=== PATIENT | female | born 1975 | race African-American/Black ===

== ENCOUNTER 2017-02-21 06:41 | Inpatient (IN) | payer BC, OTHER ==
[2017-02-20 15:13] VITALS: BMI 52.7
[~2017-02-21 06:41] MED LIST: BUPIVACAINE HCL/PF 0.25% (2.5MG/ML) 10 ML VIAL IJ ONE
[2017-02-21] MEDS ORDERED: LIDOCAINE HCL/PF 2% SDV 5ML VIAL ONE ×2 (07:49→07:55)
[2017-02-21] MEDS ORDERED: SUCCINYLCHOLINE CHLORIDE 200 MG/10 ML VIAL ONE (07:52)
[2017-02-21] MEDS ORDERED: PROPOFOL 20 ML ONE ×2 (07:52)
[2017-02-21] MEDS ORDERED: MIDAZOLAM HCL 2 MG/2 ML SINGLE DOSE VIAL ONE (07:53)
[2017-02-21] MEDS ORDERED: ROCURONIUM BROMIDE 50 MG/5 ML VIAL ONE ×2 (07:53→09:26)
[2017-02-21] MEDS ORDERED: ceFAZolin SODIUM 1 GM VIAL ONE (07:55)
[2017-02-21] MEDS ORDERED: DEXAMETHASONE SOD PHOSPHATE 4 MG/1 ML VIAL ONE (07:55)
[2017-02-21] MEDS ORDERED: KETOROLAC TROMETHAMINE 30 MG/1 ML VIAL ONE (07:55)
[2017-02-21] MEDS ORDERED: GENTAMICIN SO4 80 MG/2 ML VIAL ONE (08:00)
[2017-02-21] MEDS ORDERED: BUPIVACAINE HCL/PF 0.25% (2.5MG/ML) 10 ML VIAL ONE (08:01)
[2017-02-21] MEDS ORDERED: ceFAZolin SODIUM 1 GM VIAL IVPB ONE (08:42)
[2017-02-21] MEDS ORDERED: POLYMYXIN B SULFATE IVPB ONE (08:45)
[2017-02-21] MEDS ORDERED: WATER IVPB ONE (08:45)
[2017-02-21] MEDS ORDERED: DEXTROSE 5% IVPB ONE (08:45)
--- NOTE | 2017-02-21 08:45 | HP ---
Admitting History and Physical - Admission Chief Complaint: Vomiting,; GERD; Makfunctionig Gastric Band; Morbid Obesity History of Present Illness: Pt with lap-band for 8 years, now with GERD, vomiting secondary to band. pt also suffers from morbid obesity. Pt for removal of gastric band plus sleeve gastrectomy. History Source: Patient Limitations to Obtaining History: No Limitations - Past Medical History UTILITY LOCATE TECHNICIAN: No: Alzheimer's, CVA, Dementia, Migraine, Multiple Sclerosis, Peripheral Neuropathy, Parkinson's, Seizure, Syncope, TIA, Vertigo, Other Cardiovascular: No: AFIB, Aneurysm, Aortic Insufficiency, Aortic Stenosis, CAD, CHF, Deep Vein Thrombosis, HTN, Hyperlipdemia, CT, Mitral Insufficiency, Mitral Stenosis, Murmur, Pulmonary Hypertension, Other Pulmonary: No: Asthma, Bronchitis, Cancer, COPD, O2 Dependent, Pneumonia, Previously Intubated, Pulmonary Embolus, Pulmonary Fibrosis, Sleep Apnea, Other Gastrointestinal: Yes: GERD, Other (vomiting) Hepatobiliary: No: Cirrhosis, Cholelithiasis, Cholecystitis, Choledocholithiasis , Hepatitis A, Hepatitis B, Hepatitis C, Other Renal/: No: Renal Failure, Renal Inusuff, BPH, Cancer, Hematuria, Hemodialysis , Neurogenic Bladder, Renal Calculi, UTI, Other Reproductive: No: Ectopic , Endometriosis, Fibroids, PID, Polycystic Ovary Syndrome, Postmenopausal, Other ...LMP: 02/17/17 Heme/Onc: No: Anemia, B12 Deficiency, Bleeding Disorder, Cancer, Current Chemotherapy, Current Radiation Therapy, Hemochromatosis, Hypercoaguable State, Myeloproliferative Synd, Sickle Cell Disease, Sickle Cell Trait, Thrombocytopenia, Other Infectious Disease: No: AIDS, C-Diff, Herpes Zoster, HIV, MRSA, STD's, Tuberculosis, VREF, Other Psych: No: Addictions, Anxiety, Bipolar, Depression, Panic, Psychosis, Schizophrenia, Other Musculoskeletal: No: Bursitis, Chronic low back pain, Hemiparesis, Hemiplegia, Osteoarthritis, Paraplegia, Other Rheumatology: No: Fibromyalgia, Gout, Lupus, Rheumatoid Arthritis, Sarcoidosis, Vasculitis, Other ENT: No: Allergic Rhinitis, Sinusitis, Other Endocrine: No: [place]'s Disease, Aysha's Disease, Diabetes Insipidus, Diabetes Mellitus, Hyperparathyroidism, Hyperthyroidism, Hypothyroidism, Osteopenia, SIADH, Other Dermatology: No: Basal Cell, Cellulitis, Eczema, Melanoma, Psoriasis, Squamous Cell, Other - Smoking History Smoking history: Never smoked - Alcohol/Substance Use Hx Alcohol Use: No History of Substance Use: denies: None, Cocaine, Heroin, Marijuana, Prescription , Tranquilizers - Social History Usual Living Arrangement: No: Alone, With Spouse, With Parent, With Significant Other, With Child, Assisted Living, Fdc, Other Home Medications - Allergies Allergies/Adverse Reactions: Allergies Allergy/AdvReac Type Severity Reaction Status Date / Time No Known Allergies Allergy Verified 02/21/17 07:31 - Home Medications Home Medications: Ambulatory Orders NK [No Known Home Medication] 02/20/17 Physical Examination Vital Signs: Vital Signs Temperature 98.2 F 02/21/17 07:30 Pulse Rate 83 02/21/17 07:30 Respiratory Rate 20 02/21/17 07:30 Blood Pressure 137/67 02/21/17 07:30 O2 Sat by Pulse Oximetry (%) 100 02/21/17 07:26
[2017-02-21] MEDS ORDERED: DESFLURANE GAS 240 ML BOTTLE IH ONE (09:06)
[2017-02-21] MEDS ORDERED: METOPROLOL TARTRATE 5 MG/5 ML VIAL ONE (10:27)
[2017-02-21] MEDS ORDERED: NEOSTIGMINE METHYLSULFATE 0.5 MG/ML - 10 ML MDV ONE (10:43)
[2017-02-21] MEDS ORDERED: BUPIVACAINE HCL/PF 0.25% (2.5MG/ML) 10 ML VIAL IJ ONE (11:00)
[2017-02-21] MEDS ORDERED: TRIMETHOBENZAMIDE HCL 200MG/2ML INJ IM PRN (11:13)
[2017-02-21] MEDS ORDERED: ONDANSETRON 4 MG/2 ML VIAL IVPB PRN (11:13)
--- NOTE | 2017-02-21 11:23 | OP ---
Operative Note - Note: Operative Date: 02/21/17 Pre-Operative Diagnosis: Morbid Obesity; Vomiting; Epigatric Pain; GERD; Malfunctioning Gastric Band Operation: Laparoscopic Vertical Sleeve Gastrectomy; removal of Gastric Band plus subcutaneous port Findings: Greater curve sleeve gastrectomy performed with #[address] Band removes around the stomach and fibrous capsule removed around the stomach. Post-Operative Diagnosis: Other (abdominal adhesions; fibrous capsule around the stomach) Surgeon: Mario Garcia Plastic Molding Operator: Dakota Duque Anesthesia: General Specimens Removed: Greater curve of stomach; Gastric Band plus subcutaneous port Estimated Blood Loss (mls): 50
[2017-02-21] MEDS ORDERED: HYDROmorphone HCL CARPU-JECT 1 MG/1 ML DISP.SYRIN IVPUSH PRN (11:24)
[2017-02-21 11:47] LABS: MCHC 29.4 g/dl (32.0-36.0); MEAN PLT VOLUME 8.2 fl (7.5-11.1); PLATELET COUNT 460 K/MM3 (134-434); RDW 20.5 % (11.6-15.6); WHITE BLOOD COUNT 12.7 K/mm3 (4.0-10.0)
[2017-02-21 11:49] LABS: MCH 17.6 pg (25.7-33.7)
[2017-02-21] MEDS ORDERED: HYDROmorphone HCL CARPU-JECT 2 MG/1 ML DISP.SYRIN ONE (12:15)
[2017-02-21 12:19] LABS: ALBUMIN 2.9 g/dl (3.4-5.0); ALK PHOS 86 U/L (45-117); ANION GAP 8 (8-16); BILIRUBIN,TOTAL 0.1 mg/dL (0.2-1.0); CO2 27 mmol/L (21-32); CREATININE 0.8 mg/dL (0.55-1.02); GLUCOSE,RANDOM 164 mg/dL (74-106); SGOT/AST 44 U/L (15-37); SGPT/ALT 31 U/L (12-78)
[2017-02-21 12:52] LABS: ANISOCYTOSIS 2+; FRAGMENTED CELL FEW; HYPOCHROMIA 3+; MICROCYTOSIS 2+; TEAR DROP CELLS FEW
[2017-02-21] MEDS: HYDROmorphone HCL CARPU-JECT 1 MG/1 ML DISP.SYRIN IVPB PRN ×2 (14:59→22:00)
[2017-02-21] MEDS: FAMOTIDINE 20 MG/50 ML IVPB 50 ML IVPB SCH (22:00)
[2017-02-21] MEDS: ENOXAPARIN NA (PORCINE) 40 MG/0.4 ML DISP.SYRIN SQ SCH (22:04)
[2017-02-22] MEDS: HYDROmorphone HCL CARPU-JECT 1 MG/1 ML DISP.SYRIN IVPB PRN ×2 (05:51→10:09)
[2017-02-22 07:57] LABS: ALBUMIN 2.7 g/dl (3.4-5.0); ANION GAP 9 (8-16); CALCIUM 8.4 mg/dL (8.5-10.1); CO2 26 mmol/L (21-32); CREATININE 0.6 mg/dL (0.55-1.02); GLUCOSE,RANDOM 86 mg/dL (74-106); SGOT/AST 25 U/L (15-37); SGPT/ALT 26 U/L (12-78)
[2017-02-22 08:00] LABS: ALK PHOS 73 U/L (45-117); BILIRUBIN,TOTAL 0.2 mg/dL (0.2-1.0); TOT PROT 6.6 g/dl (6.4-8.2)
[2017-02-22] MEDS ORDERED: PT OWN MED DRAWER 7, Y5N ONE (09:05)
[2017-02-22] MEDS: FAMOTIDINE 20 MG/50 ML IVPB 50 ML IVPB SCH ×2 (09:32→21:48)
[2017-02-22] MEDS: ENOXAPARIN NA (PORCINE) 40 MG/0.4 ML DISP.SYRIN SQ SCH (09:33)
[2017-02-22] MEDS ORDERED: SODIUM CHLORIDE 1,000 ML IV SCH (10:30)
--- NOTE | 2017-02-22 11:00 | PATH ---
Surgical Pathology Report Patient Name: ROSANNA HOUSE Med. Rec. #: [id number] /Age/Gender: 1975 (Age: 41) / F Account: [id number] Location: 4 W TELEMETRY U Taken: 02/21/2017 Received: 02/21/2017 Reported: 02/22/2017 Physicians: Mario Garcia M.D. Specimen(s) Received A: GREATER CURVATURE OF STOMACH B: FOREIGN BODY-GASTRIC BAND AND PORT Clinical History Morbid obesity Final Diagnosis A. STOMACH, GREATER CURVATURE, SLEEVE GASTRECTOMY: PORTION OF STOMACH WITH SUBMUCOSAL VASCULAR ECTASIA, WITH EXTRAVASATION OF RED BLOOD CELLS. NO SIGNIFICANT INFLAMMATION IDENTIFIED. IMMUNOSTAIN FOR H. PYLORI IS NEGATIVE. B. CELLULAR EQUIPMENT REPAIRER, STOMACH, REMOVAL: CELLULAR EQUIPMENT REPAIRER CONSISTENT WITH GASTRIC BAND AND PORT (GROSS ONLY). Electronically Signed Arjun Gooden M.D. Gross Description A. Received in formalin, labeled "greater curvature of stomach," is a 66 gram, 16.5 x 4.0 x 2.3 cm. portion of stomach with a stapled margin of resection. The serosa is dawn-swartz with minimal attached fat. The mucosa is dawn-pink with normal folds. No mucosal masses are identified. Resistor Inspector sections are submitted in one cassette. B. Received fresh labeled "old gastric band and subcutaneous port," are 2 portions of a disrupted gastric band measuring 4.0 x 2.3 x 1.0 cm and 9.5 x 2.3 x 1.0 cm. The larger portion displays an attached 40 cm in length portion of tubing extending from one aspect. Also received within the same container is a 3.2 cm in diameter x 1.6 cm in depth dawn, circular device, consistent with a port. The port displays a 10 cm in length portion of tubing extending from one aspect. The port displays minimal attached soft tissue. No sections are submitted, gross only. /02/21/201702/21/2017
[2017-02-22] MEDS ORDERED: OXYCODONE/APAP 5/325MG COMBO TABLET PO PRN (11:31)
--- NOTE | 2017-02-22 12:03 | PN ---
Progress Note (short form) - Note Progress Note: POD#1 Pt doing well No N/V UGI- no leak, no obstruction H/H-6.8/23.8 Pt with known anemia pre-op HgB- 8.1 Pulse-60-70 Bp-142/74 Pt ambulating, no orthostasis P- Check H/H this afternoon Begin PO clear liquids Cont venodyne boots
--- NOTE | 2017-02-22 12:36 | OP ---
DATE OF OPERATION: 02/21/2017 PROCEDURES PERFORMED: 1. Laparoscopic vertical sleeve gastrectomy. 2. Removal of gastric band plus subcutaneous port component. 3. Laparoscopic lysis of adhesions. 4. Excision of fibrous capsule around the stomach. 5. Diagnostic laparoscopy. PREOPERATIVE DIAGNOSIS: 1. Morbid obesity. 2. Epigastric pain. 3. Gastroesophageal reflux disease. 4. Vomiting. 5. Malfunctioning mechanical device secondary to gastric band. POSTOPERATIVE DIAGNOSIS: 1. Morbid obesity. 2. Gastroesophageal reflux disease. 3. Epigastric pain. 4. Vomiting. 5. Malfunctioning mechanical device secondary to gastric band. 6. Abdominal adhesions. 7. Fibrous capsule around the stomach. OPERATING SURGEON: Mario Garcia MD LEAD CARGOMAN: Dakota Duque MD ANESTHESIA: General ESTIMATED BLOOD LOSS: 50 mL OPERATIVE PROCEDURE: The patient was brought into the operating room and placed on the OR table in a supine position. All precautions were taken initially, including padding for the back and the feet, and Venodyne boots were placed on both lower extremities. At that point, the abdomen was prepped and draped in the usual manner. A Veress needle was placed in the left quadrant and a pneumoperitoneum established. A No. 5 bladeless trocar was placed in the left upper quadrant. Through that trocar, a laparoscopic camera was placed. Under direct vision, a No. 15 bladeless trocar was placed in the midline in the supraumbilical position and a No. 5 bladeless trocar below the left costal margin. There were adhesions noted between the omentum and the left anterior abdominal wall. These were lysed with a No. 5 trocar, with the LigaSure device and also with laparoscopic scissors. Once they were completely lysed, a No. 5 bladeless trocar was then placed in the right upper quadrant. The left upper quadrant trocar was now changed from a No. 5 to a No. 12. At this point, a Harriet liver retractor was placed in the epigastrium to retract the left lobe of the liver. The patient was then placed in 20-degree reverse Trendelenburg position. The band tip was followed to the band around the proximal portion of the stomach. The band was then pulled to the patient's left side by the assistant prosecuting attorney surgeon as the operating surgeon dissected scar tissue off of the band on the lesser curvature. Once this was in full view, the band was then pulled to the patient's right side as the assistant prosecuting attorney surgeon retracted the stomach inferiorly. At this point, the capsule around the band, which was mostly adhesion, was scored with electrocautery, and this was done until the band was in full view. The band was then cut in two pieces and both pieces were removed from around the stomach and sent off the field to Pathology as a specimen. Attention was now directed to the fibrous capsule on the stomach wall. With the operating surgeon and assistant prosecuting attorney surgeon lifting it off the stomach, the fibrous capsule was split in the middle with the laparoscopic scissors from inferior all the way to superior up by the esophagogastric junction. The fibrous capsule was then peeled off toward both the patient's lesser curvature and greater curvature side. At this point, the fibrous capsule was continued to be taken down with the LigaSure device laterally on the greater curvature toward the left diaphragm until the entire stomach capsule was unwrapped, and now stomach wall was in full view. At this point, the sleeve gastrectomy portion of the surgery was going to begin. Six centimeters were measured proximally from the pylorus and here, the operating surgeon lifted the stomach toward the anterior abdominal wall as the assistant prosecuting attorney surgeon retracted the gastrocolic ligament inferiorly. The LigaSure device was used to dissect the gastrocolic ligament and then the short gastric vessels off the greater curve of the stomach. This continued in a superior direction until the final short gastric vessel between the proximal fundus and the superior pole of the spleen was divided. At this juncture, the bougie, which was a No. 40, was placed by Anesthesia, was advanced into the stomach and held along the lesser curvature. A series of marcell was performed, the first two being black load, 6 cm in length, along the bougie. This was followed by a series of purple load marcell along the bougie until the final staple was fired in the left upper quadrant and the greater curve was now completely detached from the lesser curve. It should be noted that prior to firing these marcell, both the anterior and posterior cunningham were checked so that they were equal in distance and in the area of the esophagogastric junction, approximately 0.5 cm remained on the anterior and posterior surfaces. At this juncture, was placed around the staple line and Anesthesia injected air into the bougie, which showed the entire stomach distended. No obstruction or leaks were noted. At this point, the resected greater curve was removed from the No. 15 trocar site in the midline. Under direct vision, the No. 15 and No. 12 trocars were closed with the Endo Close device to prevent internal hernia and to prevent bleeding. Under direct vision, all trocars were removed and pneumoperitoneum released. The right upper quadrant trocar site was now extended medially in the area of the subcutaneous port. Dissection continued down through the subcutaneous fat until the port was reached. The capsule off the port was dissected and the port was then removed from the right anterior rectus muscle and sent off the field as specimen. At this point, all trocar sites received 0.25% Marcaine, were closed with 4-0 Biosyn in a subcuticular fashion except for where the port site , were first closed with 3-0 Vicryl in interrupted fashion on the subcutaneous tissue, followed by 4-0 Biosyn in subcuticular fashion. Dressings were applied, the patient was awakened from anesthesia and transferred out of the operating room to the recovery room in stable condition. Ant [id number]
[2017-02-22 13:41] LABS: MCHC 28.9 g/dl (32.0-36.0); MEAN CELL VOLUME 59.8 fl (80-96); MEAN PLT VOLUME 8.1 fl (7.5-11.1); PLATELET COUNT 416 K/MM3 (134-434); RDW 20.7 % (11.6-15.6); WHITE BLOOD COUNT 11.9 K/mm3 (4.0-10.0)
[2017-02-22 13:51] LABS: MCH 17.3 pg (25.7-33.7)
[2017-02-22] MEDS: ACETAMINOPHEN 325 MG TABLET (FP) PO PRN (21:45)
[2017-02-22] MEDS: oxyCODONE HCL 5 MG TABLET PO PRN (21:47)
[2017-02-23] MEDS: ACETAMINOPHEN 325 MG TABLET (FP) PO PRN (06:20)
[2017-02-23] MEDS: oxyCODONE HCL 5 MG TABLET PO PRN (06:21)
[2017-02-23 08:13] VITALS: BP 135/67; TEMP 98.6
[2017-02-23] MEDS: FAMOTIDINE 20 MG/50 ML IVPB 50 ML IVPB SCH (10:04)
[2017-02-23 13:20] LABS: MEAN CELL VOLUME 61.5 fl (80-96); MEAN PLT VOLUME 7.3 fl (7.5-11.1); PLATELET COUNT 388 K/MM3 (134-434); WHITE BLOOD COUNT 10.2 K/mm3 (4.0-10.0)
[2017-02-23 13:22] LABS: MCH 18.5 pg (25.7-33.7)
[2017-02-23 13:37] VITALS: PULSE 58
== END 2017-02-23 15:20 | disposition home or self-care (01) | DRG 908 ==
LOC: JSAMEDAYSX 06:41 → J4W 14:38
PROVIDERS: ADMIT Surgery; ATTEND Surgery
PROC: 0DP64CZ Removal of Extraluminal Device from Stomach, Percutaneous Endoscopic Approach (ICD-10-PCS; 2017-02-21)
PROC: 0DN64ZZ Release Stomach, Percutaneous Endoscopic Approach (ICD-10-PCS; 2017-02-21)
PROC: 0DB64ZZ Excision of Stomach, Percutaneous Endoscopic Approach (ICD-10-PCS; 2017-02-21)
PROC: 0DB64Z3 Excision of Stomach, Percutaneous Endoscopic Approach, Vertical (ICD-10-PCS; principal; 2017-02-21 08:00)
DX: T85.518A Breakdown (mechanical) of other gastrointestinal prosthetic devices, implants and grafts, initial encounter (principal); Z68.43 Body mass index [BMI] 50.0-59.9, adult; Y83.8 Other surgical procedures as the cause of abnormal reaction of the patient, or of later complication, without mention of misadventure at the time of the procedure; K21.9 Gastro-esophageal reflux disease without esophagitis; E66.01 Morbid (severe) obesity due to excess calories; K66.0 Peritoneal adhesions (postprocedural) (postinfection); D64.9 Anemia, unspecified; R11.10 Vomiting, unspecified
CPT/HCPCS: 36415; 36430; 74241-TC; 80053; 84703; 85027; 86850; 86900; 86901; 86922; 88300-TC; 88305-TC; 94760; P9038; P9058

== ENCOUNTER 2018-04-07 08:24 | Day surgery (SDC) | payer BC, OTHER ==
[2018-04-03 11:15] VITALS: BMI 52.7
[2018-04-07] MEDS ORDERED: PROPOFOL 20 ML ONE ×2 (08:50)
[2018-04-07 10:29] VITALS: TEMP 98.1
[2018-04-07 11:07] VITALS: BP 126/77; PULSE 76
--- NOTE | 2018-04-09 12:38 | PATH ---
Surgical Pathology Report Patient Name: ROSANNA HOUSE [facility]. Rec. #: [id number] /Age/Gender: 1975 (Age: 42) / F Account: [id number] Location: Taken: 04/07/2018 Received: 04/07/2018 Reported: 04/09/2018 Physicians: Prabhjot Darnell M.D. Specimen(s) Received A: BX DUODENUM B: BX ANTRUM Clinical History GERD Postoperative diagnosis: Mild gastritis Final Diagnosis A. DUODENUM, BIOPSY: DUODENAL MUCOSA WITH NO PATHOLOGIC FINDINGS. B. ANTRUM, BIOPSY: MILD CHRONIC GASTRITIS. IMMUNOSTAIN IS NEGATIVE FOR H. PYLORI ORGANISMS. Electronically Signed Jocelyn Martin M.D. Gross Description A. Received in formalin, labeled "duodenum" is a dawn, irregular portion of soft tissue measuring 0.4 cm. in greatest dimension. The specimen is submitted in toto in one cassette. B. Received in formalin, labeled "antrum" are 2 dawn, irregular portions of soft tissue measuring 0.3 and 0.4 cm. in greatest dimension. The specimens are submitted in toto in one cassette. 04/07/2018 [place]04/07/2018
== END 2018-04-07 11:00 | disposition home or self-care (01) ==
LOC: FASU-ENDO 08:24
PROVIDERS: ATTEND Internal Medicine Gastroenterology
PROC: 0DB98ZX Excision of Duodenum, Via Natural or Artificial Opening Endoscopic, Diagnostic (ICD-10-PCS; principal; 2018-04-07 09:58)
PROC: 0DB68ZX Excision of Stomach, Via Natural or Artificial Opening Endoscopic, Diagnostic (ICD-10-PCS; 2018-04-07 09:58)
DX: K29.50 Unspecified chronic gastritis without bleeding (principal); Z13.810 Encounter for screening for upper gastrointestinal disorder
CPT/HCPCS: 84703; 88305-TC; 88342-TC

== ENCOUNTER 2018-10-31 09:58 | Inpatient (IN) | payer BC, OTHER ==
[2018-10-30 14:20] VITALS: BMI 52.7
[2018-10-31] MEDS ORDERED: MIDAZOLAM HCL 2 MG/2 ML SINGLE DOSE VIAL ONE (13:30)
[2018-10-31] MEDS ORDERED: KETAMINE HCL 200 MG/20 ML VIAL ONE (13:35)
[2018-10-31] MEDS ORDERED: ceFAZolin SODIUM 1 GM VIAL IVPB ONE (14:07)
[2018-10-31] MEDS ORDERED: BUPIVACAINE HCL/PF (5 MG/ML) 30 ML VIAL IJ ONE (14:37)
[2018-10-31] MEDS ORDERED: ROCURONIUM BROMIDE 50 MG/5 ML VIAL ONE (14:52)
[2018-10-31] MEDS ORDERED: BUPIVACAINE HCL/PF 0.5% (5MG/ML) 10 ML VIAL ONE (15:31)
--- NOTE | 2018-10-31 15:38 | HP ---
DATE OF ADMISSION: 10/31/2018 CHIEF COMPLAINT: Morbid obesity. HISTORY OF PRESENT ILLNESS: The patient is a 43-year-old woman with a history of morbid obesity for many years despite multiple attempts at dietary weight loss. She received nutritional, psychological, and cardiac evaluation and clearance prior to being admitted for elective sleeve gastrectomy surgery. PAST MEDICAL HISTORY: Significant for asthma and iron-deficiency anemia. PAST SURGICAL HISTORY: History of previous laparoscopic sleeve gastrectomy noted. MEDICATION: Include inhalers for her asthma and also iron infusion that is directed by her paving rammer. ALLERGIES: Patient has no known allergies. REVIEW OF SYSTEMSCardiovascular: Within normal limits. Respiratory: Occasional wheezing easily controlled with inhaler therapy. Gastrointestinal: Within normal limits. Genitourinary: Within normal limits. Musculoskeletal: Within normal limits. Neurological: Within normal limits. PHYSICAL EXAMINATION: General: A 43-year-old woman morbidly obese, awake alert, in no acute distress. HEENT: No masses palpated. Lungs: Clear breath sounds bilaterally. Heart: Regular sinus rhythm. Abdomen: Well healed incision. Soft, nontender on palpation. Extremities: No signs of swelling or edema in either of the lower extremities. IMPRESSION: Morbid obesity. PLAN: Laparoscopic vertical sleeve gastrectomy, possible open vertical sleeve gastrectomy. Ant [id number]
[2018-10-31] MEDS ORDERED: NEOSTIGMINE METHYLSULFATE 0.5 MG/1 ML - 10 ML MDV ONE (15:57)
[2018-10-31] MEDS ORDERED: GLYCOPYRROLATE 0.2 MG/1 ML VIAL ONE ×2 (15:57→16:05)
[2018-10-31] MEDS ORDERED: KETOROLAC TROMETHAMINE 30 MG/1 ML VIAL ONE (15:57)
[2018-10-31] MEDS ORDERED: ONDANSETRON 4 MG/2 ML VIAL IVPUSH PRN (16:20)
[2018-10-31] MEDS ORDERED: MORPHINE SULFATE 2 MG/ML VIAL IVPUSH PRN (16:23)
--- NOTE | 2018-10-31 16:27 | OP ---
Operative Note - Note: Operative Date: 10/31/18 Pre-Operative Diagnosis: Mornid Obesity. Asthma Operation: Laparoscopic Vertical Sleeve Gastrectomy. Laparoscopic Lysis of adhesions. Diagnostic Laparoscopy Findings: Greater curve sleeve gastrectomy performed with #[address] Post-Operative Diagnosis: Same as Pre-op (abdominal adhesions) Surgeon: Mario Garcia Chemistry Laboratory Technician: Loraine Chapa Anesthesia: General Specimens Removed: Greater curve of stomach Estimated Blood Loss (mls): 30 Operative Report Dictated: Yes
[2018-10-31] MEDS: SODIUM CHLORIDE 1,000 ML IV SCH ×2 (16:30→18:54)
--- NOTE | 2018-10-31 16:47 | SURG ---
Surgery Settlement Worker Note Settlement Worker: Loraine Chapa PA-C Date of Service: 10/31/18 Diagnosis: Mornid Obesity. Asthma Procedure: Laparoscopic Vertical Sleeve Gastrectomy. Laparoscopic Lysis of adhesions. Diagnostic Laparoscopy I was present for the entirety of the operative procedure. For further detail, please refer to operative report. Visit type - Case Type Case Type: Scheduled - Emergency Emergency Visit: No - New patient This patient is new to me today: Yes Date on this admission: 10/31/18
[2018-10-31 17:05] LABS: HEMATOCRIT 36.6 % (32.4-45.2); HEMOGLOBIN 11.7 GM/dL (10.7-15.3); MCH 23.6 pg (25.7-33.7); MCHC 31.9 g/dl (32.0-36.0); PLATELET COUNT 444 K/MM3 (134-434); RBC 4.95 M/mm3 (3.60-5.2); RDW 16.1 % (11.6-15.6); WHITE BLOOD COUNT 14.5 K/mm3 (4.0-10.0)
[2018-10-31] MEDS: METOCLOPRAMIDE HCL INJECTION 10 MG/2 ML VIAL IVPUSH SCH ×2 (17:13→22:56)
[2018-10-31 17:29] LABS: ALBUMIN 3.5 g/dl (3.4-5.0); ALK PHOS 109 U/L (45-117); ANION GAP 7 MMOL/L (8-16); BILIRUBIN,TOTAL 0.4 mg/dL (0.2-1); BLOOD UREA NITROGEN 14 mg/dL (7-18); CALCIUM 8.1 mg/dL (8.5-10.1); CHLORIDE 106 mmol/L (98-107); CO2 25 mmol/L (21-32); CREATININE 0.7 mg/dL (0.55-1.3); GLUCOSE,RANDOM 155 mg/dL (74-106); SGOT/AST 29 U/L (15-37); SGPT/ALT 25 U/L (13-61); SODIUM 139 mmol/L (136-145); TOT PROT 8.3 g/dl (6.4-8.2)
[2018-10-31] MEDS: FAMOTIDINE 20 MG/50 ML IVPB 20 MG/50 ML MG IVPB SCH (22:56)
[2018-10-31] MEDS: ENOXAPARIN NA (PORCINE) 40 MG/0.4 ML DISP.SYRIN SQ SCH (22:56)
[2018-11-01] MEDS: METOCLOPRAMIDE HCL INJECTION 10 MG/2 ML VIAL IVPUSH SCH ×2 (05:00→14:25)
[2018-11-01 07:19] LABS: HEMATOCRIT 30.5 % (32.4-45.2); HEMOGLOBIN 9.8 GM/dL (10.7-15.3); MCH 23.6 pg (25.7-33.7); MCHC 32.1 g/dl (32.0-36.0); MEAN CELL VOLUME 73.7 fl (80-96); MEAN PLT VOLUME 8.1 fl (7.5-11.1); PLATELET COUNT 457 K/MM3 (134-434); RBC 4.14 M/mm3 (3.60-5.2); RDW 15.9 % (11.6-15.6); WHITE BLOOD COUNT 11.9 K/mm3 (4.0-10.0)
--- NOTE | 2018-11-01 07:35 | OP ---
DATE OF OPERATION: 10/31/2018 PREOPERATIVE DIAGNOSES: 1. Morbid obesity. 2. Asthma. POSTOPERATIVE DIAGNOSES: 1. Morbid obesity. 2. Asthma. 3. Abdominal adhesions. PROCEDURE PERFORMED: 1. Laparoscopic vertical sleeve gastrectomy. 2. Laparoscopic lysis of adhesions. 3. Diagnostic laparoscopy. OPERATING SURGEON: Mario Garcia MD HEADLINE WRITER: KYLER Castro ANESTHESIA: General. EXPECTED BLOOD LOSS: 30 mL. OPERATIVE PROCEDURE: The patient was brought into the operating room, placed on the OR table in the supine position. All precautions were taken initially including padding for the back and the feet and Venodyne boots were placed on both lower extremities. At that point the abdomen was prepped and draped in the usual manner. A Veress needle was placed in the left upper quadrant and a pneumoperitoneum was established. Under direct vision with a No. 5 camera a No. 5 bladeless trocar was placed in the left upper quadrant and through that trocar the laparoscopic camera was placed. Immediately upon placing the camera there was noted to be a lot of adhesions in the midline between the omentum and the transverse colon up against the anterior abdominal wall. This made it impossible to place trocars on the right side of the abdomen. Therefore, an opening was found on the left side and here in the left lower quadrant and in the left upper quadrant two 5 trocars bladeless were placed. Using camera in the working port the adhesions were lysed mostly with sharp dissection with a laparoscopic scissor starting from the left upper quadrant and extending towards the midline to the right upper quadrant. Once all the adhesions were lysed the came down and now full visualization of the abdomen was obtained. Now under direct vision a No. 15 bladeless trocar was placed in the midline in a supraumbilical position and a No. 5 bladeless trocar in the right upper quadrant. A Harriet liver retractor was placed in the epigastrium to retract the left lobe of the liver. The patient was then placed in the 20-degree reverse Trendelenburg position by Anesthesia. The pylorus was noted and from here approximately 4 to 5 cm was measured and at that point the greater curve was lifted up by the operating surgeon as the dermatology physician assistant surgeon retracted the gastrocolic ligament and the adhesions inferiorly. The LigaSure device was used to dissect the gastrocolic ligament initially and then the short gastric vessels off the greater curve of the stomach. There were a lot of adhesions along the stomach wall and also posteriorly and these adhesions were carefully dissected after all the tissue was retracted more posteriorly which included tissue around the pancreas. Care was taken around the pancreas and only under direct vision and very slowly with the LigaSure used to dissect the tissue off the greater curve of the stomach. This continued all the way up to the proximal fundus at which point this was stuck against the undersurface of the left lobe of the liver. As much of the proximal fundus was exposed as possible with only a little bit remaining that could not without further possibility of injury to the stomach wall. At this juncture Anesthesia advanced a No. 36 bougie. With the bougie held along the lesser curve a series of marcell was performed with the first 2 being black-load marcell 6 cm in length along the bougie. This was followed by a series of purple-load marcell also 6 cm in length until the final staple was fired in the left upper quadrant and the greater curve was now completely detached from the lesser curve. It should be noted that prior to firing the marcell both the anterior and posterior cunningham were checked that they were equal and distant and in the area of the esophagogastric junction approximately 1 to 1.5 cm of serosa remained on the anterior and posterior surfaces. At this juncture saline was placed around the staple line and Anesthesia inserted air into the bougie and blew it up to a pressure of 35 mm which showed no obstruction as the entire stomach was distended and no leaks were noted. At this juncture the resected greater curve was removed through the No. 15 trocar site and sent off the field as specimen to Pathology. Under direct vision the No. 15 midline trocar sites were closed with Endo Close device to prevent internal hernia and prevent bleeding. Under direct vision all trocars were removed and pneumoperitoneum released. All trocar sites received 0.25% Marcaine. The No. 15 trocar was first closed with 3-0 Vicryl in the subcutaneous tissue. Then all trocar sites were closed with 4-0 Biosyn in a subcuticular fashion. Dressings were applied. Patient awoke from anesthesia and transferred out of the operating room to the recovery room in stable condition. Ant [id number]
[2018-11-01 08:00] LABS: ALBUMIN 2.8 g/dl (3.4-5.0); ALK PHOS 91 U/L (45-117); ANION GAP 7 MMOL/L (8-16); BILIRUBIN,TOTAL 0.3 mg/dL (0.2-1); BLOOD UREA NITROGEN 15 mg/dL (7-18); CALCIUM 8.2 mg/dL (8.5-10.1); CHLORIDE 108 mmol/L (98-107); CO2 24 mmol/L (21-32); CREATININE 0.6 mg/dL (0.55-1.3); GLUCOSE,RANDOM 114 mg/dL (74-106); POTASSIUM 4.4 mmol/L (3.5-5.1); SGOT/AST 23 U/L (15-37); SGPT/ALT 22 U/L (13-61); SODIUM 138 mmol/L (136-145); TOT PROT 7.1 g/dl (6.4-8.2)
[2018-11-01] MEDS ORDERED: PNEUMOC 13-VAL CONJ-DIP CRM/PF 0.5 ML DISP.SYRIN IM ONE (08:00)
[2018-11-01] MEDS: ENOXAPARIN NA (PORCINE) 40 MG/0.4 ML DISP.SYRIN SQ SCH (09:52)
[2018-11-01] MEDS: FAMOTIDINE 20 MG/50 ML IVPB 20 MG/50 ML MG IVPB SCH (09:54)
[2018-11-01] MEDS ORDERED: PNEUMOCOCCAL 23 VACCINE 0.5 ML VIAL IM ONE (10:00)
[2018-11-01] MEDS ORDERED: oxyCODONE HCL 5 MG TABLET PO PRN (13:27)
[2018-11-01] MEDS ORDERED: ACETAMINOPHEN 325 MG TABLET (FP) PO PRN (13:27)
--- NOTE | 2018-11-01 13:27 | PN ---
Progress Note (short form) - Note Progress Note: POD#1 Afebrile; VSS P-76-89 BP-142/72 Pt doing very well No N/V Minimal abdominal discomfort Pt ambulating well Tolerating PO clear liquids- 2 oz po TID WBC-11.9 (decreased) H/H-9.8/30.5 UGI- no leak, no obstruction P- PO clear liquids- 2 oz PO tid Cont increased ambulation D/C pt home- all instructions given regarding wound care, po intake
[2018-11-01] MEDS ORDERED: SODIUM CHLORIDE 1,000 ML IV SCH (13:30)
[2018-11-01 15:49] VITALS: BP 150/80; PULSE 68; TEMP 97
--- NOTE | 2018-11-06 16:15 | PATH ---
Surgical Pathology Report Patient Name: ROSANNA HOUSE [facility]. Rec. #: [id number] /Age/Gender: 1975 (Age: 43) / F Account: [id number] Location: 4 W TELEMETRY U Taken: 10/31/2018 Received: 11/04/2018 Reported: 11/06/2018 Physicians: Mario Garcia M.D. Specimen(s) Received GREATER CURVATURE STOMACH Clinical History Morbid obesity Final Diagnosis STOMACH, GREATER CURVATURE, LAPAROSCOPIC VERTICAL SLEEVE GASTRECTOMY: PORTION OF STOMACH WITH MILD CHRONIC GASTRITIS. IMMUNOHISTOCHEMICAL STAIN FOR H. PYLORI IS NEGATIVE. Electronically Signed Kellen Hui M.D. Gross Description Received in formalin, labeled "greater curvature stomach," is a 38 gram, 10.0 x 2.3 x 2.3 cm. portion of stomach with a stapled margin of resection. The serosa is dawn-swartz with minimal attached fat. The mucosa is dawn-pink with normal folds. No mucosal masses are identified. Consulting Psychiatrist sections are submitted in one cassette. /11/04/2018 [facility]/04/2018
== END 2018-11-01 14:59 | disposition home or self-care (01) | DRG 621 ==
LOC: JSAMEDAYSX 09:58 → J4W 20:46
PROVIDERS: ADMIT Surgery; ATTEND Surgery
PROC: 0DNW4ZZ Release Peritoneum, Percutaneous Endoscopic Approach (ICD-10-PCS; 2018-10-31)
PROC: 0DB64Z3 Excision of Stomach, Percutaneous Endoscopic Approach, Vertical (ICD-10-PCS; principal; 2018-10-31 12:00)
DX: E66.01 Morbid (severe) obesity due to excess calories (principal); Z68.43 Body mass index [BMI] 50.0-59.9, adult; J45.909 Unspecified asthma, uncomplicated; K66.0 Peritoneal adhesions (postprocedural) (postinfection)
CPT/HCPCS: 36415; 74241-TC-FY; 80053; 84703; 85027; 86850; 86900; 86901; 88305-TC; 90732; 94760; G0009; J7030